=== PATIENT | male | born 1955 | race Caucasian/White ===

== ENCOUNTER 2018-05-15 11:40 | Inpatient (IN) | payer MEDICAID, OTHER ==
[~2018-05-15] VITALS: Ht 175.3 cm; Wt 79.0 kg
[2018-05-15 13:47] LABS: Basophils # (auto) 0.2 uL; Basophils % (auto) 1.4 % (0.0-2.0); Eosinophils # (auto) 0 uL; Eosinophils % (auto) 0.2 % (0.0-7.0); Hematocrit 49.8 % (41.0-53.0); Hemoglobin 17.3 g/dL (13.5-17.5); Lymphocytes # (auto) 1.5 uL; Lymphocytes % (auto) 9.8 % (10.0-50.0); Mean Corpuscular Hemoglobin 32.2 pg (28.0-32.0); Mean Corpuscular Hgb Conc. 34.7 g/dL (32.0-36.0); Mean Corpuscular Volume 92.9 fL (80.0-100.0); Monocytes % (auto) 6.7 % (0.0-12.0); Neutrophils # (auto) 12.5 uL; Neutrophils % (auto) 81.9 % (37.0-80.0); Nucleated Red Blood Cells % 0.1 %; Platelet Count (auto) 199 10^3/uL (140-450); Red Blood Cells 5.36 10^6/uL (4.5-5.90); Red Cell Distribution Width 14.1 % (11.8-14.3); White Blood Cell 15.3 10^3/uL (4.4-10.8)
[2018-05-15 14:10] LABS: Potassium 4.3 mmol/L (3.5-5.1)
[2018-05-15 14:12] LABS: Urine Bacteria NONE SEEN /hpf (None Seen); Urine Blood 2+ /uL (Negative); Urine Mucus FEW (None Seen); Urine WBC 95 /hpf (0 - 3)
[2018-05-15 14:15] LABS: Albumin 3.5 g/dL (3.4-5.0); BUN/Creatinine Ratio 24.4; Calcium 9.4 mg/dL (8.5-10.1); Total Protein 8.6 g/dL (6.4-8.2)
[2018-05-15] MEDS ORDERED: SODIUM CHLORIDE 0.9% 1,000 ML IV ONE (14:24)
[2018-05-15 14:28] LABS: Bilirubin, Total 1.3 mg/dL (0.2-1.0)
[2018-05-15] MEDS ORDERED: KETOROLAC TROMETH 30 MG/ML 1ML VIAL IV ONE (14:30)
[2018-05-15] MEDS ORDERED: METOCLOPRAMIDE HCL 5MG/ml INJ 2ml VIAL IV ONE (15:30)
[2018-05-15] MEDS ORDERED: cefTRIAXone 1GM/10ml IVPUSH 10 ML IV ONE (15:30)
[2018-05-15] MEDS ORDERED: MORPHINE SULFATE 4 MG/ML SYR/VIAL IV ONE (15:30)
[2018-05-15] MEDS ORDERED: TEMAZEPAM 15 MG CAP PO PRN (16:00)
[2018-05-15] MEDS ORDERED: ACETAMINOPHEN 500 MG TAB PO PRN (16:00)
[2018-05-15] MEDS ORDERED: PROMETHAZINE HCL 25 MG/ML 1ML IV PRN (16:00)
[2018-05-15] MEDS ORDERED: HYDROcodone-ACET 5/325MG TAB PO PRN (16:00)
[2018-05-15] MEDS ORDERED: LORazepam 0.5 MG TAB PO PRN (16:00)
[2018-05-15] MEDS ORDERED: MORPHINE SULF INJ 2 MG/ML SYRINGE 1ML IV PRN (16:00)
[2018-05-15] MEDS ORDERED: NITROGLYCERIN 0.4 MG SL TAB SL PRN (16:00)
[2018-05-15] MEDS: SODIUM CHLORIDE 0.9% 1,000 ML IV SCH (16:16)
[2018-05-15 20:00] VITALS: BP 97/77
[2018-05-15] MEDS: MORPHINE SULF INJ 2 MG/ML SYRINGE 1ML IV PRN (20:17)
[2018-05-15] MEDS: FAMOTIDINE 20 MG TAB PO SCH (21:15)
[2018-05-15 22:00] VITALS: BP 104/70
[2018-05-16] MEDS: MORPHINE SULF INJ 2 MG/ML SYRINGE 1ML IV PRN ×6 (00:52→23:17)
[2018-05-16] MEDS: SODIUM CHLORIDE 0.9% 1,000 ML IV SCH ×3 (04:20→23:17)
[2018-05-16 05:00] VITALS: BP 131/76
[2018-05-16 08:32] VITALS: BP 131/78
[2018-05-16 09:43] LABS: Basophils # (auto) 0 uL; Eosinophils # (auto) 0.2 uL; Hemoglobin 15.5 g/dL (13.5-17.5); Lymphocytes # (auto) 1.9 uL; Monocytes # (auto) 0.9 uL; Red Blood Cells 4.89 10^6/uL (4.5-5.90)
[2018-05-16 09:48] LABS: Basophils % (auto) 0.6 % (0.0-2.0); Eosinophils % (auto) 2.1 % (0.0-7.0); Hematocrit 47.1 % (41.0-53.0); Lymphocytes % (auto) 23.8 % (10.0-50.0); Mean Corpuscular Hemoglobin 31.8 pg (28.0-32.0); Mean Corpuscular Hgb Conc. 32.9 g/dL (32.0-36.0); Mean Corpuscular Volume 96.5 fL (80.0-100.0); Monocytes % (auto) 11.6 % (0.0-12.0); Neutrophils # (auto) 4.9 uL; Neutrophils % (auto) 61.9 % (37.0-80.0); Nucleated Red Blood Cells % 0.1 %; Platelet Count (auto) 169 10^3/uL (140-450); Red Cell Distribution Width 14.7 % (11.8-14.3); White Blood Cell 7.9 10^3/uL (4.4-10.8)
[2018-05-16] MEDS: cefTRIAXone 1GM/10ml IVPUSH 10 ML IV SCH (10:24)
[2018-05-16] MEDS: FAMOTIDINE 20 MG TAB PO SCH ×2 (10:24→23:17)
[2018-05-16 13:45] VITALS: BP 106/65
[2018-05-16] MEDS: PHENAZOPYRIDINE HCL 100 MG TAB PO SCH ×2 (14:35→18:36)
[2018-05-16 16:32] VITALS: BP 101/56
[2018-05-16 21:36] VITALS: BP 126/74
[2018-05-17] MEDS: MORPHINE SULF INJ 2 MG/ML SYRINGE 1ML IV PRN ×5 (03:40→21:24)
[2018-05-17 04:58] VITALS: BP 118/66
[2018-05-17] MEDS: SODIUM CHLORIDE 0.9% 1,000 ML IV SCH ×2 (07:49→17:59)
[2018-05-17 08:17] VITALS: BP 131/83
[2018-05-17] MEDS: PHENAZOPYRIDINE HCL 100 MG TAB PO SCH ×3 (08:36→18:03)
[2018-05-17] MEDS: cefTRIAXone 1GM/10ml IVPUSH 10 ML IV SCH (08:36)
[2018-05-17] MEDS: FAMOTIDINE 20 MG TAB PO SCH ×2 (08:36→21:24)
[2018-05-17 11:59] VITALS: BP 151/84
[2018-05-17 16:35] VITALS: BP 148/78
[2018-05-17 20:00] VITALS: BP 149/90
[2018-05-18] MEDS: MORPHINE SULF INJ 2 MG/ML SYRINGE 1ML IV PRN ×2 (02:56→08:08)
[2018-05-18] MEDS: SODIUM CHLORIDE 0.9% 1,000 ML IV SCH (03:41)
[2018-05-18 05:19] VITALS: BP 140/86
[2018-05-18] MEDS: PHENAZOPYRIDINE HCL 100 MG TAB PO SCH (08:07)
[2018-05-18] MEDS: FAMOTIDINE 20 MG TAB PO SCH (08:07)
[2018-05-18] MEDS: cefTRIAXone 1GM/10ml IVPUSH 10 ML IV SCH (08:07)
[2018-05-18 09:00] VITALS: BP 142/86
== END 2018-05-18 11:00 | disposition home or self-care (01) | DRG 720 ==
LOC: ER 11:46 → TELE 11:47 → TELE-WESTW 19:57 → WEST WING 05-16 13:20
PROVIDERS: ADMIT Internal Medicine; ATTEND Internal Medicine
DX: A41.9 Sepsis, unspecified organism (principal); E87.1 Hypo-osmolality and hyponatremia; N30.90 Cystitis, unspecified without hematuria; G89.29 Other chronic pain; G62.9 Polyneuropathy, unspecified; F17.210 Nicotine dependence, cigarettes, uncomplicated; M54.9 Dorsalgia, unspecified; B96.1 Klebsiella pneumoniae [K. pneumoniae] as the cause of diseases classified elsewhere; Z90.49 Acquired absence of other specified parts of digestive tract; Z74.01 Bed confinement status; Z79.899 Other long term (current) drug therapy; Z83.3 Family history of diabetes mellitus
CPT/HCPCS: 36415; 51702; 76775; 80053; 81001; 85025; 87040; 87086; 87088; 87186; 96361; 96374; 96375; J0696; J1885

== ENCOUNTER 2019-09-20 08:01 | Emergency (ER) | payer SELFPAY ==
[~2019-09-20] VITALS: Ht 175.3 cm; Wt 79.4 kg
[2019-09-20 09:33] LABS: Basophils # (auto) 0 uL; Basophils % (auto) 0.6 % (0.0-2.0); Eosinophils # (auto) 0.2 uL; Eosinophils % (auto) 2.3 % (0.0-7.0); Hematocrit 49.8 % (41.0-53.0); Hemoglobin 16.6 g/dL (13.5-17.5); Lymphocytes # (auto) 1.8 uL; Lymphocytes % (auto) 25.3 % (10.0-50.0); Mean Corpuscular Hemoglobin 32.1 pg (28.0-32.0); Mean Corpuscular Hgb Conc. 33.3 g/dL (32.0-36.0); Mean Corpuscular Volume 96.2 fL (80.0-100.0); Monocytes # (auto) 0.5 uL; Neutrophils # (auto) 4.5 uL; Neutrophils % (auto) 64.8 % (37.0-80.0); Nucleated Red Blood Cells % 0.1 %; Platelet Count (auto) 191 10^3/uL (140-450); Red Blood Cells 5.18 10^6/uL (4.5-5.90)
[2019-09-20 09:47] VITALS: BP 151/83
[2019-09-20 09:48] LABS: Albumin 3.5 g/dL (3.4-5.0); BUN/Creatinine Ratio 12.5; Calcium 8.9 mg/dL (8.5-10.1); Potassium 4.3 mmol/L (3.5-5.1)
[2019-09-20 09:51] LABS: Bilirubin, Total 0.7 mg/dL (0.2-1.0); Total Protein 7.7 g/dL (6.4-8.2)
[2019-09-20 10:06] LABS: Urine Bacteria NONE SEEN /hpf (None Seen); Urine Blood Negative /uL (Negative); Urine Mucus FEW (None Seen); Urine WBC <1 /hpf (0 - 3)
[2019-09-20] MEDS ORDERED: cefTRIAXone W LIDOCAINE 1 GM IM IM ONE (10:45)
[2019-09-20] MEDS ORDERED: cefTRIAXone SOD 1,000 MG VL ONE (11:00)
== END 2019-09-20 11:00 | disposition home or self-care (01) ==
LOC: ER 08:01
DX: J40 Bronchitis, not specified as acute or chronic (principal); I10 Essential (primary) hypertension; F17.210 Nicotine dependence, cigarettes, uncomplicated; F12.10 Cannabis abuse, uncomplicated; Z90.89 Acquired absence of other organs
CPT/HCPCS: 36415; 71045; 80053; 81001; 83880; 85025; 93005; 96372; 99284; J0696

== ENCOUNTER 2020-01-20 14:59 | Emergency (ER) | payer MEDICAID ==
[~2020-01-20] VITALS: Ht 175.3 cm; Wt 81.6 kg
[2020-01-20 15:13] VITALS: BP 147/94
== END 2020-01-20 17:07 | disposition left against medical advice (07) ==
LOC: ER 14:59 → EDBD 14:59 → EDUNIT# 14:59 → ER 17:07
DX: R51 Headache (principal); Z53.21 Procedure and treatment not carried out due to patient leaving prior to being seen by health care provider; Y04.2XXA Assault by strike against or bumped into by another person, initial encounter; Y93.89 Activity, other specified; Y92.89 Other specified places as the place of occurrence of the external cause; Y99.8 Other external cause status
CPT/HCPCS: 70450